=== PATIENT | female | born 1985 | race Caucasian/White ===

== ENCOUNTER 2016-05-26 13:19 | Inpatient (IN) | payer BC, MEDICAID ==
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
[2016-05-26 17:36] LABS: Basophils # (A) 0.1 k/uL (0-0.2); Basophils % (A) 1 %; CH 30.9; CHCM 33.7; Eosinophils # (A) 0.2 k/uL (0-0.7); Eosinophils % (A) 2 %; HCT 40.4 % (34.0-46.0); HGB 13.2 gm/dL (11.4-16.0); Luc # (Auto) 0.23; Luc % (Auto) 3; Lymphocytes % (A) 35 %; MCH 30.1 pg (25.0-35.0); MCHC 32.7 g/dL (31.0-37.0); MCV 92.1 fL (80.0-100.0); Mean Platelet Volume 7.8; Monocytes # (A) 0.5 k/uL (0-1.0); Monocytes % (A) 6 %; Neutrophils # (A) 4.8 k/uL (1.3-7.7); Neutrophils % (A) 55 %; RBC 4.39 m/uL (3.80-5.40); RDW 11.7 % (11.5-15.5); WBC 8.8 k/uL (3.8-10.6); WBC (Perox) 8.74
[2016-05-26 17:44] LABS: Appearance,Urine Clear (Clear); Bilirubin,Urine Negative (Negative); Glucose,Urine (UA) Negative (Negative); Ketones,Urine Negative (Negative); Leukocyte Esterase,Urine Negative (Negative); Nitrite,Urine Negative (Negative); PH, Urine 6.5 (5.0-8.0); Protein,Urine Negative (Negative); Specific Gravity,Urine 1.006 (1.001-1.035); UA Billing (MACRO vs. MICRO) CHEM; Urobilinogen,Urine <2.0 mg/dL (<2.0)
[2016-05-26 17:44] LABS: ALT 23 U/L (9-52); AST 16 U/L (14-36); Alkaline Phosphatase 49 U/L (38-126); Anion Gap 8 mmol/L; Blood Urea Nitrogen 10 mg/dL (7-17); Calcium 9.5 mg/dL (8.4-10.2); Carbon Dioxide 25 mmol/L (22-30); Chloride 107 mmol/L (98-107); Glucose 81 mg/dL (74-99); Non-African American GFR(MDRD) >60 (>60 ml/min/1.73 sqM); Potassium 4.3 mmol/L (3.5-5.1); Sodium 140 mmol/L (137-145); Total Bilirubin 0.4 mg/dL (0.2-1.3); Total Protein 6.6 g/dL (6.3-8.2)
[2016-05-27] MEDS ORDERED: ACETAMINOPHEN TAB 325 MG TAB PO PRN (08:09)
[2016-05-27] MEDS ORDERED: MAG HYDROX/AL HYDROX/SIMETH 30 ML CUP PO PRN (08:09)
[2016-05-27] MEDS ORDERED: MAGNESIUM HYDROXIDE 2,400 MG/10 ML CUP PO PRN (08:09)
[2016-05-27] MEDS ORDERED: LORazepam 2 MG/ML SYRINGE IM PRN (08:25)
[2016-05-27] MEDS ORDERED: LORazepam 1 MG TAB PO PRN (08:26)
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
[2016-05-27] MEDS: VENLAFAXINE HCL ER 37.5 MG CAP PO SCH (14:37)
[2016-05-27 16:31] VITALS: BMI 20.1
[2016-05-27] MEDS ORDERED: GABAPENTIN 100 MG CAP PO SCH (21:00)
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
[2016-05-27] MEDS ORDERED: NICOTINE POLACRILEX 2 MG GUM BUCCAL PRN (22:03)
[2016-05-28] MEDS: VENLAFAXINE HCL ER 37.5 MG CAP PO SCH (08:48)
--- NOTE | 2016-05-28 16:55 | P.PN ---
Progress Note - Text SUBJECTIVE: Patient endorses racing thoughts ,poor sleep ,restless especially at night ,on edge and excessive worries about ongoing legal problems MENTAL STATUS EXAM: Patient is cooperative ,speech is rapid and pressured ,psychomotor agitation , labile ,denies any suicidal or homicidal ideation ,denies any psychotic features PLAN: Discontinue Neurontin ,start Seroquel ,monitor hypomanic symptoms and her compliance
[2016-05-28] MEDS ORDERED: QUEtiapine 50 MG TAB PO SCH (21:00)
[2016-05-29 03:31] VITALS: RESP 12
[2016-05-29] MEDS: VENLAFAXINE HCL ER 37.5 MG CAP PO SCH (08:59)
--- NOTE | 2016-05-29 15:13 | P.PN ---
Progress Note - Text Interval history: . She reports that today she has been feeling better from a mood standpoint but continues to have trouble sleeping even with Seroquel 50 mg and racing thoughts "I HAD TO ASK FOR ATIVAN ,I NEED STRONG TRANQUILIZER I HAD BEEN ON XANAX FOR AT LEAST 7 YEARS" She reports high anxiety and asking for Xanax , we discussed treatment options and addiction potential of Xanax She does not voice any adverse psychotropic medication side effects. Mental status exam: She is alert and cooperative with the interview. Her speech is rapid but not pressured ,psychomotor agitation Thought processes are tangential ,avoiding discussing her daughter or related legal issue Her mood she describes is today is better ,denies any suicidal or homicidal ideation . No evidence of active psychosis or agitation. Plan: Increase Effexor ,Increase Seroquel and change it to XR ,monitor her sleep and mood.
[2016-05-30 06:46] VITALS: BP 103/51; PULSE 55; TEMP 97.8
[2016-05-30] MEDS ORDERED: VENLAFAXINE HCL ER 75 MG CAP PO SCH (09:00)
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
== END 2016-05-30 13:50 | disposition home or self-care (01) | DRG 885 ==
LOC: EC 13:19 → 3MHU 05-27 04:48
PROVIDERS: ADMIT Psychiatry & Neurology Psychiatry; ATTEND Psychiatry & Neurology Psychiatry
DX: F33.2 Major depressive disorder, recurrent severe without psychotic features (principal); R45.851 Suicidal ideations; F12.19 Cannabis abuse with unspecified cannabis-induced disorder; F10.10 Alcohol abuse, uncomplicated; F17.200 Nicotine dependence, unspecified, uncomplicated; F41.9 Anxiety disorder, unspecified; F60.89 Other specific personality disorders; Z65.3 Problems related to other legal circumstances; Z81.8 Family history of other mental and behavioral disorders; Z88.0 Allergy status to penicillin; Z88.5 Allergy status to narcotic agent; Z91.040 Latex allergy status
CPT/HCPCS: 36415; 80053; 80306; 81003; 81025; 82075; 84443; 85025; 99285